=== PATIENT | female | born 1990 | race Caucasian/White ===

== ENCOUNTER 2018-07-18 14:17 | Outpatient (CLI) | payer MEDICAID, SELFPAY ==
[2018-07-18 14:30] VITALS: BP 139/77; PULSE 99; RESP 20; TEMP 36.8; O2SAT 96; BMI 27.6
[2018-07-18 14:59] LABS: Microscopic, Urine URINE MICROSCOPIC (MICROSCOPIC)
[2018-07-18 15:01] LABS: Appearance,Urine CLEAR (Clear); Blood, Urine Negative (Negative); Color,Urine YELLOW (Yellow); Glucose,Urine (UA) Negative (Negative); Ketones,Urine Negative (Negative); Leukocyte Esterase,Urine Negative (Negative); Nitrate,Urine Negative (Negative); Protein,Urine TRACE (Negative); Specific Gravity, Urine 1.025 (1.005-1.030); Urobilinogen,Urine 0.2 EU/dl (0.2)
[2018-07-18 15:24] LABS: Amphetamine/Metha Screen,Urine Negative ng/mL (<1000); Barbiturates Screen,Urine Negative ng/mL (<200); Benzodiazepines Screen,Urine Negative ng/mL (<200); Cannabinoid Screen,Urine Negative ng/mL (<50); Cocaine Screen,Urine Negative ng/mL (<300); Methadone Screen,Urine Negative ng/mL (<300); Opiate Screen,Urine Negative ng/mL (<300); Phencyclidine Screen,Urine Negative ng/mL (<25)
[2018-07-18 15:35] LABS: RBC,Urine Occasional #/hpf (0-3); Red Blood Cell Casts,Urine Occasional #/lpf (0); WBC,Urine Occasional #/hpf (0-3)
[2018-07-18 15:36] LABS: Bacteria,Urine Trace /lpf
[2018-07-18 15:47] LABS: Fetal Fibronectin (Rapid) Negative (Negative)
[2018-07-18 15:55] LABS: Bilirubin,Urine Negative (Negative)
== END 2018-07-18 16:40 | disposition home or self-care (01) ==
LOC: OBOUT 14:23 → OB 14:24
PROVIDERS: PCP Family Medicine; Visit Provider Obstetrics & Gynecology
DX: O47.03 False labor before 37 completed weeks of gestation, third trimester (principal); Z3A.24 24 weeks gestation of pregnancy
CPT/HCPCS: 59025; 80305; 81001; 82731

== ENCOUNTER 2022-03-27 13:33 | Emergency (ER) | payer MEDICAID, SELFPAY ==
[2022-03-27 13:35] VITALS: BP 167/98; PULSE 109; RESP 18; TEMP 36.6; O2SAT 97; BMI 41.0
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
[2022-03-27 14:01] VITALS: BP 117/84; PULSE 112; O2SAT 98
[2022-03-27 15:09] VITALS: BP 145/64; PULSE 97; O2SAT 99
[2022-03-27 15:21] VITALS: BP 141/60; PULSE 92; RESP 20; TEMP 36.6; O2SAT 99
== END 2022-03-27 15:28 | disposition home or self-care (01) ==
PROVIDERS: Emergency Provider Emergency Medicine; PCP Family Medicine
DX: S89.91XA Unspecified injury of right lower leg, initial encounter (principal); S80.12XA Contusion of left lower leg, initial encounter; M77.32 Calcaneal spur, left foot; V09.20XA Pedestrian injured in traffic accident involving unspecified motor vehicles, initial encounter
CPT/HCPCS: 71045; 72170; 73562; 73590; 73600; 99285